=== PATIENT | female | born 1985 | race Caucasian/White ===

== ENCOUNTER 2018-06-25 16:23 | Emergency (ER) | payer OTHER ==
[~2018-06-25] VITALS: Ht 162.6 cm; Wt 61.4 kg
--- NOTE | 2018-06-25 18:16 | REP ---
Soft-tissue ultrasound left medial thigh. History: The left medial thigh bruising. Findings: Soft tissue sonography in the area in question shows no evidence of hematoma or organized fluid collection. This no abnormalities noted in the subcutaneous fat or visualized musculature. Impression: Negative soft-tissue ultrasound of the left medial thigh. No abnormal fluid collection seen. Electronically Signed by Miguel Roa MD 06/25/2018 06:08 P
[2018-06-25 19:12] VITALS: BP 103/60
== END 2018-06-25 19:21 | disposition home or self-care (01) ==
LOC: M ED 16:23
DX: S80.12XA Contusion of left lower leg, initial encounter (principal); M79.89 Other specified soft tissue disorders; X58.XXXA Exposure to other specified factors, initial encounter; Y92.89 Other specified places as the place of occurrence of the external cause; Y93.B9 Activity, other involving muscle strengthening exercises

== ENCOUNTER 2018-07-29 06:58 | Emergency (ER) | payer OTHER ==
[~2018-07-29] VITALS: Ht 162.6 cm; Wt 61.4 kg
[2018-07-29 07:43] LABS: BASO % 0.8 % (0.0-1.0); EOS # 0.2 10^3/uL (0.0-0.50); EOS % 4.6 % (0.0-3.0); HEMATOCRIT 45.4 % (36.0-47.0); HEMOGLOBIN 14.7 g/dl (12.0-15.5); LYMPH # 1.5 10^3/uL (1.5-4.5); LYMPH % 30.5 % (24.0-44.0); MEAN CORPUSCULAR HEMOGLOBIN 29.2 pg (27.0-33.0); MEAN CORPUSCULAR HGB CONC 32.4 g/dl (32.0-36.5); MEAN CORPUSCULAR VOLUME 90.1 fl (80.0-96.0); MONO # 0.6 10^3/uL (0.0-0.8); NEUTROPHILS # 2.6 10^3/uL (1.8-7.7); NEUTROPHILS % 52.9 % (36.0-66.0); PLATELET COUNT, AUTOMATED 192 10^3/uL (150-450); RED BLOOD COUNT 5.04 10^6/uL (4.00-5.40)
--- NOTE | 2018-07-29 07:44 | REP ---
AP pelvis single view : There is no fracture or dislocation. Mineralization and joint spaces are normal. There are no calcifications or foreign bodies. Impression: Negative AP pelvis. Left hip two views : There is no fracture or dislocation. Mineralization and joint spaces are normal. There are no calcifications or foreign bodies. Impression: Negative left hip . Electronically Signed by Torsten Gerard MD 07/29/2018 07:35 A
--- NOTE | 2018-07-29 08:49 | REP ---
Left lower extremity deep vein duplex ultrasound: The deep veins demonstrate normal compression, normal Doppler color flow and normal Doppler waveforms with respiration and augmentation from the popliteal vein to the common femoral vein. Impression: There is no left lower extremity deep vein thrombus. Electronically Signed by Torsten Gerard MD 07/29/2018 08:40 A
[2018-07-29 09:01] VITALS: BP 98/53
== END 2018-07-29 09:04 | disposition home or self-care (01) ==
LOC: M ED 06:58
DX: M25.552 Pain in left hip (principal)